=== PATIENT | female | born 1995 | race Caucasian/White ===

== ENCOUNTER 2016-10-28 19:22 | Emergency (ER) | payer OTHER ==
[~2016-10-28] VITALS: Ht 167.6 cm; Wt 127.3 kg
[~2016-10-28 19:22] MED LIST: FAMO40TA72 PO; ONDA-53 PO
[2016-10-28 19:28] VITALS: BP 136/88; PULSE 81; RESP 18; O2SAT 97
--- NOTE | 2016-10-28 20:00 | DRSVH ---
PROCEDURE: X-RAY LEFT HAND, MINIMUM THREE VIEWS ([id number]) INDICATIONS: left thumb pain TECHNIQUE: 3 views of the hand(s) acquired. COMPARISON: [facility], CR, XR WRIST 3VW LT, 10/28/2016, 19:38. FINDINGS: Bones: No fractures or dislocations. Carpal bones are normally aligned. No suspicious bony lesions . Old distal radial metaphyseal fracture is noted with internal fixation. Soft tissues: No suspicious soft tissue calcifications. IMPRESSION: No fracture or dislocation. Dictated by: Armond Fish M.D. on 10/28/2016 at 19:59 Approved by: Armond Fish M.D. on 10/28/2016 at 20:00
--- NOTE | 2016-10-28 20:02 | DRSVH ---
PROCEDURE: X-RAY LEFT WRIST COMPLETE, MINIMUM THREE VIEWS ([id number]) INDICATIONS: 21 year-old female with left wrist pain. TECHNIQUE: 4 views of the wrist were acquired. COMPARISON: None. FINDINGS: Bones: No acute fractures or dislocations. Old healed distal radial metaphyseal fracture with inter nal fixation. No suspicious bony lesions. Scaphoid view: Scaphoid is intact. Soft tissues: No suspicious soft tissue calcifications. IMPRESSION: No acute fracture. Old distal radial metaphyseal fracture with internal fixation. Dictated by: Armond Fish M.D. on 10/28/2016 at 20:00 Approved by: Armond Fish M.D. on 10/28/2016 at 20:02
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
[2016-10-28] MEDS ORDERED: _HYDROcodone/APAP 5-325 mg Tablet PO PRN (21:25)
[2016-10-28] MEDS ORDERED: Erythromycin 0.5% 1 Gm Ophthalmic Ointment RIGHT_EYE ONE (21:25)
[2016-10-28] MEDS ORDERED: IBUP-1827 PO (21:31)
[2016-10-28] MEDS ORDERED: Erythromycin 0.5% 1 Gm Ophthalmic Ointment RIGHT_EYE SCH (21:45)
[2016-10-28 22:00] VITALS: BP 136/88; PULSE 81; RESP 18; O2SAT 97
[2016-10-29] MEDS ORDERED: Erythromycin 0.5% 1 Gm Ophthalmic Ointment RIGHT_EYE SCH (08:30)
== END 2016-10-28 22:01 | disposition home or self-care (01) ==
LOC: SED 19:22
DX: S00.90XA Unspecified superficial injury of unspecified part of head, initial encounter (principal); S63.602A Unspecified sprain of left thumb, initial encounter; S40.011A Contusion of right shoulder, initial encounter; W18.30XA Fall on same level, unspecified, initial encounter; W22.8XXA Striking against or struck by other objects, initial encounter; Y92.003 Bedroom of unspecified non-institutional (private) residence as the place of occurrence of the external cause; Y93.89 Activity, other specified; Y99.8 Other external cause status; H00.012 Hordeolum externum right lower eyelid; Z87.828 Personal history of other (healed) physical injury and trauma

== ENCOUNTER 2016-12-19 13:53 | Emergency (ER) | payer OTHER ==
[~2016-12-19] VITALS: Ht 167.6 cm; Wt 136.4 kg
[~2016-12-19 13:53] MED LIST changes: +IBUP-1827 PO
[2016-12-19 13:56] VITALS: PULSE 77; RESP 17; O2SAT 96
--- NOTE | 2016-12-19 14:38 | DRSVH ---
PROCEDURE: X-RAY RIGHT FOOT COMPLETE, MINIMUM THREE VIEWS ([id number]) INDICATIONS: glass TECHNIQUE: 3 views of the foot were acquired. COMPARISON: None. FINDINGS: Bones: No fractures or dislocations. No suspicious bony lesions. Soft tissues: No radiopaque foreign bodies identified. IMPRESSION: 1. No radiopaque foreign bodies identified. Dictated by: Sajan Wray M.D. on 12/19/2016 at 14:31 Approved by: Sajan Wray M.D. on 12/19/2016 at 14:36
[2016-12-19 15:21] VITALS: BP 121/81; PULSE 75; RESP 16; O2SAT 96
--- NOTE | 2016-12-19 15:29 | ED.REPORT ---
HPI-Extremity Problem Lower Date of Service Dec 19, 2016 ED Provider: Dr. Cook Patient is a 21 y/o female with a history of chronic anemia who presents to the ED with a laceration to the right foot that occurred at 1430 when she stepped on a broken piece of glass while walking in her kitchen. She was able to control the bleeding with pressure but still reports a sharp pain. The patient stated that she had fallen with no associated trauma, numbness or tingling but does admit to feeling lightheaded and fatigued. Nursing Notes Stated Complaint: RIGHT FOOT INJURY Chief Complaint: Laceration Nursing Notes Reviewed: Yes Allergies: Coded Allergies: Latex, Natural Rubber (Verified Allergy, Severe, 12/19/16) Uncoded Allergies: ELASTIC (Allergy, Intermediate, 12/19/16) Scheduled Famotidine (Pepcid) 40 Mg Tablet 40 MG PO BID Ondansetron (Ondansetron) 4 Mg Tablet 4 MG PO QID Scheduled PRN Ibuprofen (Ibuprofen) 600 Mg Tablet 600 MG PO QID PRN PRN For Pain General Time Seen by MD: 15:29 Chief Complaint Foot injury right Hx Obtained From: Patient Arrived By: Walk-in Onset Occurred: 1 - 4 hours ago Symptom Duration: Since onset Caused by: Accidental Location: : Foot right Quality: Sharp Severity: Current: Moderate Past Medical History Past Medical History Chronic anemia Past Surgical History None reported Smoking History Unknown if Ever Smoker Social History Infrequent cocaine Alcohol Use: "Social" Drug Use: THC Ambulatory Status Independent Review of Systems Musculoskeletal: Reports: Extremity pain Complete sys rev & neg: except as marked. Hematologic: Reports Bleeding Physical Exam Initial Vital Signs Vital Signs (First) Date Time Temp Pulse Resp B/P Pulse Ox O2 Delivery O2 Flow Rate FiO2 12/19/16 13:56 36.3 77 17 96 Room Air 12/19/16 15:21 121/81 Initial VS: Reviewed General/Constitutional: Well-developed, Well-nourished Head / Eyes: Atraumatic, Normocephalic, PERRL ENT: Mucous membranes moist, Conjunctiva normal, No scleral icterus Neck: Supple, Non-tender, Full range of motion Respiratory: No respiratory distress Cardiovascular: Intact distal pulses Skin: Warm, Dry, No cyanosis Neurologic: Alert, Oriented, Nonfocal Psychiatric: Mood/affect normal, Behavior normal, Normal thought content Ankle / Foot: Neurologic intact, Vascular intact 3cm laceration to the plantar region of right foot. Full plantar flexion of toes and cap refill sensation intact. Interpretation & Diagnostics X-Ray Interpretation Xray Interpretation: IMPRESSION: 1. No radiopaque foreign bodies identified. Dictated by: Sajan Wray M.D. on 12/19/2016 at 14:31 X-Ray Ordered: Foot right Interpretation / Wet Read by: Interpret - Radiologist Procedures Laceration Management Time: 16:15 Procedure Performed by: ED physician Consent / Setup / Site Prep: Consent from patient Wound Length: 3 cm Local Anesthesia: Lidocaine w epi 1% Wound Preparation: Betadine Irrigation: Copious (saline) Repair Skin: ___ O (4), Nylon # Sutures - Skin: 6 Suture Technique: Simple Post-Procedure / Complications: Antibiotic oint applied, Dressing applied, No complications, Condition improved, Tolerated procedure well, Patient stable Re-Eval/Medical Decision Re-Evaluation/Progress : Time of Eval: 16:48 Patient Status: Condition improved (after sutures) Re-Evaluation/Progress Note: Discussed plan for d/c and f/u. All questions addressed. Counseled Regarding: Diagnosis, Need for follow-up, When/why to return to ED Discharge & Departure Impression: Primary Impression: Laceration of right foot Encounter type: initial encounter Qualified Code: S91.311A - Laceration without foreign body, right foot, initial encounter Disposition: Home Discharge Condition All VS Reviewed: Yes Condition: Stable Patient Instructions: Acute Wound Care (ED) Additional Instructions: W e sutured a laceration on your R foot. We gave a tetanus booster. return in 10 days to have stitches out. tetanus shot is good for 10 years. come back immediately if you have problems with the wound. Referrals: NOPCP (PCP) Scribe Attestation Portions of this note were transcribed by Marlene Kay. I, ( Dr. Cook) personally performed the history, physical exam and medical decision- making; I reviewed and confirmed the accuracy of the information in the transcribed note. Signed by: Marlene Kay. Scribe, 12/19/2016 , 0943 Toño Cook MD Dec 19, 2016 15:29 Samson Kay Dec 19, 2016 16:02 Marlene Benz Dec 19, 2016 16:50
[2016-12-19] MEDS ORDERED: TdaP Vaccine 0.5 mL Inj IM ONE (16:00)
[2016-12-19] MEDS ORDERED: Lidocaine 2%-Epi 1:100,000 20 mL Inj ONE (16:06)
[2016-12-19 17:07] VITALS: BP 121/81; PULSE 75; RESP 16; O2SAT 96
== END 2016-12-19 17:08 | disposition home or self-care (01) ==
LOC: SED 13:53
DX: S91.311A Laceration without foreign body, right foot, initial encounter (principal); W25.XXXA Contact with sharp glass, initial encounter; Y93.01 Activity, walking, marching and hiking; Y92.000 Kitchen of unspecified non-institutional (private) residence as the place of occurrence of the external cause; Y99.8 Other external cause status; Z91.040 Latex allergy status

== ENCOUNTER 2016-12-19 20:55 | Emergency (ER) | payer OTHER ==
[~2016-12-19] VITALS: Ht 167.6 cm; Wt 136.4 kg
[2016-12-19 21:55] VITALS: BP 133/94; PULSE 85; RESP 16; O2SAT 96
--- NOTE | 2016-12-20 00:23 | ED.REPORT ---
HPI-Extremity Problem Lower Date of Service Dec 20, 2016 ED Provider: Doc,Ed MD A 21 year old female presents to the ED complaining of laceration to right foot. Laceration was repaired earlier in ED, patient leaving at 1730. Pain and bleeding have been increasing since then. Nursing Notes Stated Complaint: CUT ON FOOT/ BLEED THROUGH BANDAGE, TOES IN PAIN Chief Complaint: Extremity Trauma Nursing Notes Reviewed: Yes Allergies: Coded Allergies: Latex, Natural Rubber (Verified Allergy, Severe, 12/19/16) Uncoded Allergies: ELASTIC (Allergy, Intermediate, 12/19/16) Scheduled Famotidine (Pepcid) 40 Mg Tablet 40 MG PO BID Ondansetron (Ondansetron) 4 Mg Tablet 4 MG PO QID Scheduled PRN Ibuprofen (Ibuprofen) 600 Mg Tablet 600 MG PO QID PRN PRN For Pain General Time Seen by MD: 00:23 Chief Complaint Foot injury right Hx Obtained From: Patient Arrived By: Walk-in Onset Occurred: 1 - 4 hours ago Symptom Duration: Since onset Severity: Current: Moderate Severity: Maximum: Moderate Recent Healthcare: Recent doctor visit (Visited ED earlier today.) Similar Sx Previous: No Past Medical History Past Medical History Chronic anemia Past Surgical History None reported Smoking History Current Some Day Smoker Social History Infrequent cocaine Alcohol Use: "Social" Drug Use: THC Ambulatory Status Independent Review of Systems Constitutional: Denies: Chills, Fever Musculoskeletal: Reports: Extremity pain (right foot laceration with pain and bleeding.) Complete sys rev & neg: except as marked. Respiratory: Denies: Non-productive cough Physical Exam Initial Vital Signs Vital Signs (First) Date Time Temp Pulse Resp B/P Pulse Ox O2 Delivery O2 Flow Rate FiO2 12/19/16 21:55 36.4 85 16 133/94 96 Room Air Initial VS: Reviewed Lower Extremity / Pelvis / MS: Full range of motion Right Foot: Positive: ROM reduced (Pain with ROM in toes) 1.5-2cm laceration to pad of right foot. Pain with ROM in toes. No signs of infection. Sensation of toes intact. General/Constitutional: Awake, Alert Respiratory / Chest: Atraumatic, Breath sounds NL, Breath sounds = bilat, No respiratory distress, No rales, No rhonchi, No wheezing Cardiovascular: Heart rate NL, Regular rhythm, Heart sounds NL, No gallop, No murmurs, No rubs Skin: Atraumatic, Color NL, Warm Neurologic: Oriented X3, Speech NL Head / Eyes: Atraumatic, Normocephalic, PERRL, EOMI ENT: Atraumatic, Airway patent, Mucous membranes moist Abdomen: No guarding, No rebound Upper Extremity / MS: No swelling, No edema Re-Eval/Medical Decision Med Decision/Clinical Course No signs of active bleeding. She does not pain with range of motion and some subjective tendon weakness. Wound is are not even close like cannot comment on whether the tendons were injured. I will have her follow-up with podiatry though Source of Hx: Old records Re-Evaluation/Progress : Time of Eval: 00:23 Re-Evaluation/Progress Note: Explained diagnosis, and plan for discharge. Patient understands and agrees with the plan. All questions addressed. Counseled Regarding: Diagnosis, Need for follow-up, When/why to return to ED Discharge & Departure Impression: Primary Impression: Laceration of right foot Encounter type: subsequent encounter Qualified Code: S91.311D - Laceration without foreign body, right foot, subsequent encounter Disposition: Home Patient Instructions: Crutch Instructions (ED), Laceration (ED), Splint Care ( ED) Additional Instructions: Keep the wound dressed and elevated. Wear the cam boot and use crutches for ambulation. Elevate your foot as much as possible. Due to fact that you are having the paresthesias and tendon weakness I recommended you follow up with a aluminum welder. Call the referral aluminum welder office tomorrow for evaluation. You may take 1-2 Percocet every 6 hours as needed for severe pain. This medication can be habit forming so use it sparingly. Do not drive or drink alcohol or consume acetaminophen while taking the Percocet. Return if any problems or any worsening symptoms. Referrals: NOPCP (PCP) Lorie Karimi DPM Attestation Portions of this note were transcribed by Ezekiel Holder. I, Dr. Lomeli personally performed the history, physical exam and medical decision-making; I reviewed and confirmed the accuracy of the information in the transcribed note. Signed by: Adali Fields, 12/20/2016, 0103. copies to: NOPCP; Lorie Karimi DPM, Todd P DO Dec 20, 2016 00:23 Ezekiel Holder Dec 20, 2016 00:59
[2016-12-20] MEDS ORDERED: _oxyCODONE/APAP 5-325 mg Tablet PO PRN (00:35)
== END 2016-12-20 01:15 | disposition home or self-care (01) ==
LOC: SED 20:55
DX: S91.311D Laceration without foreign body, right foot, subsequent encounter (principal); W45.8XXD Other foreign body or object entering through skin, subsequent encounter; Y93.89 Activity, other specified; Y92.89 Other specified places as the place of occurrence of the external cause; Y99.8 Other external cause status; F17.200 Nicotine dependence, unspecified, uncomplicated; Z91.040 Latex allergy status

== ENCOUNTER 2017-02-18 09:53 | Emergency (ER) | payer OTHER ==
[~2017-02-18] VITALS: Ht 167.6 cm; Wt 129.6 kg
[2017-02-18 09:55] VITALS: BP 149/97; PULSE 96; RESP 15; O2SAT 97
--- NOTE | 2017-02-18 10:05 | ED.REPORT ---
HPI-Chest Pain Under 40 Date of Service Feb 18, 2017 ED Provider: Travis Flaherty MD Pt is a 21 y/o female w/ a hx of unmedicated anxiety, suspected stomach ulcer, presenting to the ED with multiple vague medical complaints. Her complaints include RAUSCH onset this morning thought to be a migraine, nausea and bilious vomiting daily for 1.5 months with worsening bright red blood specked in emesis , intermittent chest tightness lasting 1-2 minutes at a time thought to be brought on by shivering for 3 weeks, cough for 2 days with speckled bright red blood in sputum, possible darkened stools which she is not concerned about, intermittent subjective fever for multiple days with last episode 04:00 this morning. She was thought to have a stomach ulcer last July caused by NSAID use due to presentation of coffee-ground emesis and tarry stools. She was told to switch to Tylenol and therefore has not been taking any NSAIDs recently. She reports heart disease in her mother with symptoms beginning in her 20s. She would also like to have a mostly healed wound on her right foot checked today. Nursing Notes Stated Complaint: HEADACHE,CP,SPITTING UP BLOOD Chief Complaint: Chest Pain-Non Cardiac Nature Nursing Notes Reviewed: Yes (N-Trig, meds not reconciled) Allergies: Coded Allergies: Latex, Natural Rubber (Verified Allergy, Severe, 12/19/16) Uncoded Allergies: ELASTIC (Allergy, Intermediate, 12/19/16) Scheduled Famotidine (Pepcid) 40 Mg Tablet 40 MG PO BID Omeprazole (Omeprazole) 20 Mg Capsule.dr 20 MG PO BID Ondansetron (Ondansetron) 4 Mg Tablet 4 MG PO QID Scheduled PRN Benzonatate (Tessalon Perle) 100 Mg Capsule 200 MG PO TID PRN PRN For Cough Ibuprofen (Ibuprofen) 600 Mg Tablet 600 MG PO QID PRN PRN For Pain Promethazine (Promethazine) 25 Mg Tablet 25 MG PO Q4H PRN PRN nausea OR migraine General Time Seen by MD: 10:04 Chief Complaint Other (vague) Hx Obtained From: Patient Arrived By: Walk-in Sudden in Onset?: No Onset Occurred: More than a week ago... (1 month) Symptom Duration: Intermittent Location: : Substernal Quality: Pressure Radiation: : Does not radiate Severity: Current: No pain currently Severity: Maximum: Moderate Risk Factors )( PE Risk Stratification Risk factors reviewed, No risk factors Past Medical History Past Medical History Chronic anemia Asthma "Chronic bronchitis" Unmedicated anxiety Stomach ulcer caused by excessive NSAID use Past Surgical History Left elbow Bilat carpal tunnel Smoking History Current Some Day Smoker Social History Infrequent cocaine Alcohol Use: "Social" Drug Use: THC Ambulatory Status Independent Review of Systems Constitutional: Reports: Chills, Fever Respiratory: Reports: Hemoptysis, Non-productive cough, Denies: Shortness of breath Cardiovascular: Reports: Chest pain, Denies: Dyspnea on exertion, Edema GI: Reports: Bloody/tarry stool, Hematemesis, Nausea, Vomiting Complete sys rev & neg: except as marked. Physical Exam Initial Vital Signs Vital Signs (First) Date Time Temp Pulse Resp B/P Pulse Ox O2 Delivery O2 Flow Rate FiO2 02/18/17 09:55 36.2 96 15 149/97 97 Room Air Initial VS: Reviewed, Vital signs normal Head / Eyes: Atraumatic, Normocephalic, PERRL ENT: Mucous membranes moist, Conjunctiva normal, No scleral icterus Neck: Supple, Full range of motion Abdomen / GI: Soft, Non-tender, No guarding, No rebound, No distention Skin: Warm, Dry, No cyanosis Neurologic: Alert, Oriented, Nonfocal General/Constitutional: Awake, Alert, No acute distress, Well appearing, Cooperative, Not toxic appearing Behavior: Positive: Anxious Appearance / Presentation: Positive: Obese Respiratory / Chest: Breath sounds NL, Breath sounds = bilat, No respiratory distress, No rales, No rhonchi, No wheezing, No retractions, No stridor, No chest tenderness Cardiovascular: Heart rate NL, Regular rhythm, Heart sounds NL, No gallop, No murmurs, No rubs, Cap refill not delayed, Peripheral circulation NL Lower Extremity / Pelvis / MS: Atraumatic, Inspection NL, Full range of motion , No swelling, Non-tender, No erythema, No deformity, Neurologic intact, Vascular intact, No compartment syndrome, No edema Well healed scar over right foot without signs of infection or complication Psychiatric: Not suicidal, Not homicidal, No hallucinations, Cognitive function NL Abnormal Mood/Affect: Positive: Anxious Interpretation & Diagnostics Lab Results Interpretation Result Diagram: 02/18/17 1030 02/18/17 1030 Test 02/18/17 10:30 02/18/17 10:35 White Blood Count 9.7th/mm3 (3.8-10.1) Red Blood Count 5.00mil/mm3 (3.90-5.20) Hemoglobin 13.9g/dL (12.0-15.6) Hematocrit 41.8% (35.0-46.0) Mean Corpuscular Volume 83.6fL (81-100) Mean Corpuscular Hemoglobin 27.8pg (27.0-35.0) Mean Corpuscular Hemoglobin Concent 33.3% (32.0-37.0) Red Cell Distribution Width 14.1% (12.3-15.4) Platelet Count 329bil/L (150-400) Neutrophils (%) (Auto) 68.2% (40-74) Lymphocytes (%) (Auto) 22.1% (14-46) Monocytes (%) (Auto) 7.0% (4-12) Eosinophils (%) (Auto) 2.2% (0-5) Basophils (%) (Auto) 0.2% (0-3) Sodium Level 140mEq/L (134-144) Potassium Level 4.8mEq/L (3.5-5.2) Chloride Level 102mEq/L (97-108) Carbon Dioxide Level 26mmol/L (18-29) Blood Urea Nitrogen 7mg/dL (6-20) Creatinine 0.53mg/dL (0.57-1.00) Estimat Glomerular Filtration Rate 211mL/min (>59) Glucose Level 113mg/dL (60-99) Calcium Level 9.2mg/dL (8.5-10.1) Total Bilirubin 0.4mg/dL (0.0-1.2) Aspartate Amino Transf (AST/SGOT) 17U/L (0-50) Alanine Aminotransferase (ALT/SGPT) 29U/L (0-32) Alkaline Phosphatase 66U/L (25-150) Troponin T < 0.010ug/L (0.0-0.011) Total Protein 6.7g/dL (6.4-8.4) Albumin 3.9g/dL (3.4-5.0) Lipase 18U/L (13-60) Human Chorionic Gonadotropin, Qual Negative (Negative) Hold Varela Top Tube Received (Received) Lab Results Interpretation: CBC normal no anemia CMP normal negative Troponin negative ECG Interpretation Time: 10:24 Interpreted by: ED physician Normal ECG Interpretation: Normal ECG w/ rate of... (87), Normal rate, Normal sinus rhythm, No acute ischemic changes, Normal QRS, Normal axis, Normal intervals, Adequate tracing X-Ray Chest Interpretation Chest Xray Interpretation: IMPRESSION: No acute cardiopulmonary disease. Dictated by: Dmitry Myrick M.D. on 02/18/2017 at 9:44 Approved by: Dmitry Myrick M.D. on 02/18/2017 at 9:48 View: AP & lat Interpretation / Wet Read by: Interpret - Radiologist Re-Eval/Medical Decision Med Decision/Clinical Course This is a 21-year-old female presents with a multitude of symptoms. At some very atypical chest tightness over the past several weeks, often lasts just a few minutes, she does have a history of asthma. Over the past week she has had more frequent bouts of chest discomfort, but is also developed a cough shortness of breath. She has had some intermittent fevers. She is developed nausea and vomiting, worse with coughing. After several days of vomiting, has had some blood in her vomitus. She reports a distant history of concern for possible gastritis, says avoiding NSAIDs using Tylenol. She also has a mild headache that she says is similar to her typical migraine. Lastly she had concern for recheck of wound in her foot and a completely healed so still has some soreness. On exam she has normal vitals. She is anxious, and she has a moderate cough. She does not really have audible bronchospasm she reports she took her nebulizers before coming in. She is not visibly tachypneic or dyspneic. She does have the uncomfortable cough. Abdomen soft nontender. And the foot wound is completely healed scar in the right foot, no signs of complication or abscess are evident. The patient is perk rule negative. She reports concern about her heart, but has no real risk factors. EKG, chest x-ray, troponin are negative. Blood work was also normal with no anemia, no leukocytosis. Patient's not describing a significant GI bleed, and is hemodynamically normal, and describes features highly suggestive of a small Enid-Gallegos tear given reported retching prior to the onset of the bleed. The plan is discharge to home, I provided a course of PPI, continue Tylenol, single dose of dexamethasone, Tessalon Perles for cough suppression, and sent. Promethazine for nausea and migraine suppression. She is discharged in stable condition. Routine precautions reviewed Source of Hx: Old records Re-Evaluation/Progress : Time of Eval: 11:48 Re-Evaluation/Progress Note: Pt rechecked. Discussed normal lab and imaging results. She is feeling better. Informed pt of plan for treatment. Pt understands and agrees with plan for treatment. F/U instructions and RTER warnings given. All questions addressed. Differential Diagnosis: Positive: Chest pain, Negative: Acute coronary syndrome, Acute myocardial infarct, Congestive heart failure, Dysrhythmia, Esophageal rupture, Gun shot wound chest, Myocardial infarction, Pneumomediastinum, Pneumonia, Pneumothorax, Pulmonary embolism, Stab wound chest, Unstable angina Counseled Regarding: Diagnosis, Lab results, Need for follow-up, When/why to return to ED Discharge & Departure Primary Impression: Enid-Gallegos syndrome Additional Impression: Respiratory infection Disposition: Home Discharge Condition All VS Reviewed: Yes Condition: Stable Additional Instructions: 1. Your Xray was normal - no findings of a pneumonia or other dangerous cause of chest pain. Your EKG and blood tests were also normal. This includes her blood counts, with no signs of anemia or significant bleeding. 2. Hypokalemia described after repeated vomiting, is typically from a small esophageal tear and is called a Enid-Gallegos syndrome. This is usually benign , and heels with time. 3. Take promethazine 25 mg up to every 4 hours as needed for nausea or migraine. 4. Omeprazole 20 mg twice a day for the next 4 weeks-this medicine helps protect the esophagus and stomach, and promote further healing. 5. You can continue Tylenol, and continue to avoid Aleve/ibuprofen/Advil. 6. Continue your asthma medications. We have also given your dose of dexamethasone here this medicine should also help with her breathing. Take the remaining dose of 10 mg tomorrow-simply emptied the syringe and this is diffuse and drink. Her x-ray and blood tests being normal, there are no findings that her respiratory infection is caused by bacteria that would benefit from antibiotics. Symptoms are expected to improve with more time. You can add tessalon perles up to 200mg three times a day as needed for cough. 7. Symptoms are not improving, if he had new or worsening symptoms-return to the emergency department for reevaluation. 8. Rest. Drink wall sips of fluids to stay hydrated, and advance diet as tolerated. 9. If he need a primary care physician, follow-up with Dr. Mendez. Referrals: Romel Mendez MD Attestation Portions of this note were transcribed by Steve Gross. I, Dr. Flaherty personally performed the history, physical exam and medical decision-making; I reviewed and confirmed the accuracy of the information in the transcribed note. Signed by Adali Carreno, 02/18/17 - [id number] copies to: Romel Mendez MD, Matthew F MD Feb 18, 2017 10:05 STEVE GROSS Feb 18, 2017 10:18
[2017-02-18] MEDS ORDERED: Promethazine 50 mg/mL Inj IM ONE (10:15)
[2017-02-18] MEDS ORDERED: Promethazine 25 mg/mL Inj IM ONE (10:35)
[2017-02-18 10:43] LABS: BASOPHILS % (AUTO) 0.2 % (0-3); EOSINOPHILS % (AUTO) 2.2 % (0-5); Mean Corpuscular Hemoglobin 27.8 pg (27.0-35.0); Mean Corpuscular Volume 83.6 fL (81-100); NEUTROPHILS % (AUTO) 68.2 % (40-74); Platelet Count 329 bil/L (150-400)
--- NOTE | 2017-02-18 10:49 | DRSVH ---
PROCEDURE: X-RAY CHEST, TWO VIEWS ([id number]) INDICATIONS: 21 year-old female with chest pain for 3 weeks, and hemoptysis. TECHNIQUE: 2 views of the chest were acquired. COMPARISON: [facility], CR, XR CHEST 2VW, 10/11/2016, 12:54. [facility], CR , CHEST 1VW, 02/05/2008, 22:19. FINDINGS: Surgical changes and devices: None. Lungs and pleura: No pleural effusions or pneumothorax. Lungs are clear. Mediastinum: Mediastinal contours are normal. Heart size is normal. Bones and chest wall: No suspicious bony abnormalities. Soft tissues appear unremarkable. IMPRESSION: No acute cardiopulmonary disease. Dictated by: Dmitry Myrick M.D. on 02/18/2017 at 9:44 Approved by: Dmitry Myrick M.D. on 02/18/2017 at 9:48
[2017-02-18 11:16] LABS: TROPONIN T < 0.010 ug/L (0.0-0.011)
[2017-02-18 11:18] LABS: Lipase 18 U/L (13-60)
[2017-02-18] MEDS ORDERED: Dexamethasone 20 mg/2 mL Oral Solution PO ONE (11:20)
[2017-02-18] MEDS ORDERED: Pantoprazole 40 mg ER24 Tablet PO ONE (11:20)
[2017-02-18] MEDS ORDERED: BENZ-12 PO (11:45)
[2017-02-18] MEDS ORDERED: OMEP20CA11 PO (11:45)
[2017-02-18] MEDS ORDERED: PROM25TA14 PO (11:45)
[2017-02-18 11:53] VITALS: BP 140/89; PULSE 90; RESP 16; O2SAT 97
== END 2017-02-18 11:54 | disposition home or self-care (01) ==
LOC: SED 09:53
DX: K22.6 Gastro-esophageal laceration-hemorrhage syndrome (principal); J98.8 Other specified respiratory disorders; F17.200 Nicotine dependence, unspecified, uncomplicated; Z91.040 Latex allergy status
CPT/HCPCS: 36415; 71020; 80053; 83690; 84484; 84703; 85025; 93005; 96372; 99285; J2550

== ENCOUNTER 2017-02-25 15:08 | Emergency (ER) | payer OTHER ==
[~2017-02-25] VITALS: Ht 167.6 cm; Wt 127.3 kg
[~2017-02-25 15:08] MED LIST changes: +BENZ-12 PO; +OMEP20CA11 PO; +PROM25TA14 PO
[2017-02-25 15:11] VITALS: BP 121/84; PULSE 106; RESP 16; O2SAT 97
[2017-02-25] MEDS ORDERED: 0.9% Sodium Chloride 1,000 ML IV ONE (16:27)
[2017-02-25] MEDS ORDERED: Ondansetron 2 mg/mL 2 mL Inj IVPUSH PRN (16:30)
--- NOTE | 2017-02-25 16:36 | ED.REPORT ---
HPI-Abd Pain F Under 40 Date of Service Feb 25, 2017 ED Provider: Cameron Barker MD The patient a 21 yo female with a hx of unmedicated anxiety, suspected stomach ulcer, and recent Enid-Gallegos syndrome presenting to the ED with multiple vague medical complaints. Her complaints include bilious vomiting daily for 1.5 months with worsening bright red blood specked in emesis, intermittent chest tightness lasting 1-2 minutes at a time thought to be brought on by shivering for 3 weeks, dark/loose stool every 15 minutes, cough for 2 days with copious amount of green sputum, intermittent subjective fever for multiple days. She presented to the ER for similar symptoms and was thought to have Enid-Gallegos tear last week. She admits that the Promethazine and Omeprazole helped her symptoms for a couple days, then everything returns 5 days ago. Other associated symptoms include generalized body ache, epigastric abdominal pain, back pain, and anxiety. Patient denies headache, SOB, dysuria, urinary frequency , or numbness/tingling. She can tolerate food with no issue. She also reports being diagnosed with stomach ulcer last July caused by NSAID use due to presentation of coffee-ground emesis and tarry stools. Patient states that her cousin, who had similar symptoms as her, was diagnosed with Shigella recently. She has an IUD in place and denies having menstrual period since she was 15 yo. Nursing Notes Stated Complaint: BLOODY STOOL AND THROAT Chief Complaint: Female Abdominal Pain Nursing Notes Reviewed: Yes Allergies: Coded Allergies: Latex, Natural Rubber (Verified Allergy, Severe, 02/25/17) Uncoded Allergies: ELASTIC (Allergy, Intermediate, 12/19/16) Scheduled Famotidine (Pepcid) 40 Mg Tablet 40 MG PO BID Fluconazole (Diflucan) 150 Mg Tablet 150 MG PO ONCE Omeprazole (Omeprazole) 20 Mg Capsule.dr 20 MG PO BID Ondansetron (Ondansetron) 4 Mg Tablet 4 MG PO QID Sulfamethoxazole/Trimeth 800-160 mg (Bactrim DS) 1 Each Tablet 1 TABLET PO BID Scheduled PRN Benzonatate (Tessalon Perle) 100 Mg Capsule 200 MG PO TID PRN PRN For Cough Ibuprofen (Ibuprofen) 600 Mg Tablet 600 MG PO QID PRN PRN For Pain Ondansetron ODT (Zofran ODT) 4 Mg Tablet 4 MG PO Q4H PRN PRN For Nausea Promethazine (Promethazine) 25 Mg Tablet 25 MG PO Q4H PRN PRN nausea OR migraine General Time Seen by MD: 16:03 Chief Complaint Nausea, Vomiting moderate Hx Obtained From: Patient Sudden in Onset?: No Onset Occurred: More than a week ago... (2 months) Symptom Duration: Intermittent Progression since Onset: Intermittent Location: : Epigastric Quality: Same as prior Radiation: : Does not radiate Severity: Current: Mild Severity: Maximum: Moderate Associated with: Reports: Back pain, Chills, Diarrhea, Fever, Hematemesis, Melena, Denies: Anorexia, Constipation, Dysuria, Hematuria, Shortness of breath, Urinary retention, Urinary tract symptoms Pertinent Negative: Pt denies other symptoms Recent Healthcare: Recent doctor visit, Recent hospitalization Similar Sx Previous: Yes Risk Factors Ectopic Risk Stratification Current IUD Risk factors reviewed CAD Risk Stratification No risk factors Past Medical History Past Medical History Chronic anemia Asthma "Chronic bronchitis" Unmedicated anxiety Stomach ulcer caused by excessive NSAID use Past Surgical History Left elbow Bilat carpal tunnel Family History Mother with GI bleeds due to alcoholism. Smoking History Current Some Day Smoker Social History Infrequent cocaine Alcohol Use: "Social" Drug Use: THC Ambulatory Status Independent Review of Systems Basic Review of Systems Eyes: Vision NL, No discharge Skin: No bruising, No rash, No itch Allergy / Immune: No allergy Neurologic: NL mental status, No weakness, No numbness Psychiatric: Normal thought content Constitutional: Reports: Chills, Fatigue, Fever Respiratory: Reports: Pleuritic pain, Prod cough, green, Denies: Dyspnea on exertion, Hemoptysis, Shortness of breath, Wheezing Cardiovascular: Reports: Chest pain, Denies: Edema, Syncope GI: Reports: Abdominal pain, Diarrhea, Hematemesis, Melena, Nausea, Vomiting, Denies: Anorexia, Constipation, Hematochezia Female: Denies: Dysuria, Incontinence, , Urinary frequency Musculoskeletal: Reports: Back pain, Myalgia Complete sys rev & neg: except as marked. Physical Exam Initial Vital Signs Vital Signs (First) Date Time Temp Pulse Resp B/P Pulse Ox O2 Delivery O2 Flow Rate FiO2 02/25/17 15:11 36.9 106 16 121/84 97 Room Air Initial VS: Reviewed, Vital signs normal (mild tachycardia) Head / Eyes: Atraumatic, Normocephalic, PERRL ENT: Mucous membranes moist, Conjunctiva normal, No scleral icterus Neck: Supple, Non-tender, Full range of motion Lymphatic: No lymphadenopathy Extremities: Vascular intact, Neuro intact, No swelling, No tenderness Skin: Warm, Dry, No cyanosis Neurologic: Alert, Oriented, Nonfocal General/Constitutional: Awake, Alert, No acute distress, Well appearing, Well developed, Well hydrated, Cooperative, Not toxic appearing Appearance / Presentation: Positive: Obese, morbidly Respiratory / Chest: Atraumatic, Breath sounds NL, Breath sounds = bilat, No respiratory distress, No rales, No rhonchi, No wheezing, No retractions Cardiovascular: Heart rate NL, Regular rhythm, Heart sounds NL, No murmurs Abdomen: Atraumatic, Soft, No guarding, No rebound, BS normoactive, No distention Tenderness/Guarding/Rebound: Positive: Tender epigastric, Tender suprapubic, Negative: Tender flank L, Tender flank R Back: Atraumatic, Inspection NL, Full range of motion, No paraspinal tenderness , No muscle spasm, No CVA tenderness Rectum / Perineum: Atraumatic, Blood - occult heme -, No gross blood, No discharge, No fecal impaction, No fissures, No hemorrhoids, No lesions, No mass , Sphincter tone NL Minimal amount of stool in the vault Neck: Atraumatic, Supple, No meningismus, Full range of motion, No adenopathy Abnormal Mood/Affect: Positive: Anxious, Elated, Labile Abnormal Thinking / Perception: Positive: Flight of ideas, Insight abnormal, Judgment abnormal, Tangential thinking, Negative: Confused, Hallucinations, auditory, Hallucinations, visual Interpretation & Diagnostics Lab Results Interpretation Result Diagram: 02/25/17 1703 02/25/17 1703 Test 02/25/17 17:03 02/25/17 17:20 White Blood Count 10.2th/mm3 (3.8-10.1) Red Blood Count 5.13mil/mm3 (3.90-5.20) Hemoglobin 14.1g/dL (12.0-15.6) Hematocrit 41.7% (35.0-46.0) Mean Corpuscular Volume 81.3fL (81-100) Mean Corpuscular Hemoglobin 27.5pg (27.0-35.0) Mean Corpuscular Hemoglobin Concent 33.8% (32.0-37.0) Red Cell Distribution Width 14.0% (12.3-15.4) Platelet Count 360bil/L (150-400) Neutrophils (%) (Auto) 65.8% (40-74) Lymphocytes (%) (Auto) 24.0% (14-46) Monocytes (%) (Auto) 8.0% (4-12) Eosinophils (%) (Auto) 1.5% (0-5) Basophils (%) (Auto) 0.2% (0-3) Sodium Level 137mEq/L (134-144) Potassium Level 4.4mEq/L (3.5-5.2) Chloride Level 102mEq/L (97-108) Carbon Dioxide Level 22mmol/L (18-29) Blood Urea Nitrogen 6mg/dL (6-20) Creatinine 0.42mg/dL (0.57-1.00) Estimat Glomerular Filtration Rate 276mL/min (>59) Glucose Level 120mg/dL (60-99) Calcium Level 9.1mg/dL (8.5-10.1) Magnesium Level 2.1mg/dL (1.6-2.6) Total Bilirubin 0.4mg/dL (0.0-1.2) Aspartate Amino Transf (AST/SGOT) 31U/L (0-50) Alanine Aminotransferase (ALT/SGPT) 44U/L (0-32) Alkaline Phosphatase 66U/L (25-150) Total Protein 7.3g/dL (6.4-8.4) Albumin 3.6g/dL (3.4-5.0) Lipase 19U/L (13-60) Hold [place] Top Tube Received (Received) Urine Color Yellow (YELLOW) Urine Appearance Hazy (CLEAR,HAZY) Urine pH 8.5 (5.0-8.0) Urine Specific [place] 1.020 (1.003-1.035) Urine Protein Negativemg/dL (NEG,TRACE) Urine Glucose (UA) Negativemg/dL (NEGATIVE) Urine Ketones Negativemg/dL (NEGATIVE) Urine Occult Blood Negative (NEGATIVE) Urine Nitrite Negative (NEGATIVE) Urine Bilirubin Negative (NEGATIVE) Urine Urobilinogen Normalmg/dL (NORMAL) Urine Leukocyte Esterase Large (NEGATIVE) Urine RBC 0-2/hpf (0-2) Urine WBC 6-10/hpf (0-5) Urine Epithelial Cells Moderate/hpf (NONE-MOD) Urine Crystals None seen (NONE SEEN) Urine Bacteria Moderate/hpf (NONE-FEW) Urine Hyaline Casts None/lpf (NONE) Urine Granular Casts None seen (NONE SEEN) Urine Waxy Casts None seen (NONE SEEN) Urine Red Blood Cell Casts None seen (NONE SEEN) Urine White Blood Cell Casts None seen (NONE SEEN) Urine Mucus None seen (None Seen) Urine Trichomonas None seen (NONE SEEN) Urine Yeast None (NONE SEEN) Urinalysis Comment None Urine Culture Reflexed Indicated Hold Urine Received (Received) Lab values outside NL range: no clinical significance. X-Ray Chest Interpretation Chest Xray Interpretation: IMPRESSION: No acute pulmonary process. Dictated by: Shanika Craft M.D. on 02/25/2017 at 17:23 Approved by: Shanika Craft M.D. on 02/25/2017 at 17:23 Interpretation / Wet Read by: Interpret - Radiologist Re-Eval/Medical Decision Med Decision/Clinical Course 21 yo female with a hx of unmedicated anxiety, suspected stomach ulcer, and recent Enid-Gallegos syndrome presenting to the ED with multiple vague medical complaints onset almost 2 months ago. Patient was in the ER last week for similar symptoms and was diagnosed with possible Enid-Gallegos tear. She reports some improvement on the Omeprazole and Promethazine, but her symptoms returned 2 days later. Based on her history, there are concerns of bacterial vs. viral gastroenteritis; other possible differential are gastritis, peptic ulcer, GERD, UTI, anxiety, or malingering. In the ED, patient appears well hydrated and not in any acute distress. Her abdominal exam is significant for mild tenderness to palpation in the epigastric and suprapubic area with no rebound or guarding. The rest of the exam is normal and the cough was observed to be mild and non-productive. Hemoccult is negative with no dark, tarry or bloody stool noted. Her CXR and labs were all within normal limit, except for a positive UA. Therefore, patient was diagnosed with UTI and was given 7 days of Bactrim. She expressed concerns of yeast infection while on antibiotics so a prescription for Fluconazole 150mg x once was given and only filled as needed. Because patient did not complain of significant CP or SOB and she has no risk factors for PE or ACS, no cardiac workup was indicated. She will need to establish care of a primary care doctor and return to the ER for severe symptoms. Patient concurs with the plan. Re-Evaluation/Progress : Time of Eval: 17:40 )( Re-Eval Abdomen: Soft Patient Status: Condition improved Re-Evaluation/Progress Note: Patient reports improvement of her nausea and requests to be discharged. Urine dip showed some leukocytes, which indicated possible UTI. Will discharge the patient with Bactrim and follow up as outpatient. Patient verbalized understanding and would like a work excuse for today. Differential Diagnosis: Positive: Acute abdominal pain, Cholangitis, Cholecystitis, Cholelithiasis, Diarrhea, Dysmenorrhea, Ectopic , Endometriosis, Esophagitis, Infectious mononucleosis, Pelvic inflam disease, Peptic ulcer disease, Pyelonephritis, Sexually transmit disease, Urinary tract infection Severity: Non life-threatening Diagnosis Appears: Non-critical Comorbidities: Psychiatric history Counseled Regarding: Diagnosis, Lab results, Need for follow-up, When/why to return to ED Discharge & Departure Shift Change Sign-Out Response to Therapy: Improved Primary Impression: Acute UTI (urinary tract infection) Additional Impression: Nausea & vomiting Vomiting type: bilious vomiting Qualified Code: R11.14 - Bilious vomiting Disposition: Home Discharge Condition All VS Reviewed: Yes Condition: Stable Patient Instructions: Acute Nausea and Vomiting (ED), Acute Abdominal Pain (ED) Additional Instructions: You was seen in the ER for evaluation of dark, loose stool and bloody vomiting. The exact cause of your symptoms are uncertain. There is no blood noted on the hemoccult today, so the dark stool could be due to your food. Please set up an appointment with a primary care doctor. You can go to the Residency clinic here if you need a doctor. Your labs are within normal limit, except that urine shows possible infection. We will treat it with an antibiotic called Bactrim. Please take it as directed for 7 days. Prescription was sent to your pharmacy. You can take probiotics or eat yoghurt while taking the antibiotics to prevent worsening diarrhea. I will give you a prescription for an antifungal medication that you can fill if you develop yeast infection with the antibiotics. Your stool and urine were sent for further analysis today. It is likely that you have a viral infection that usually self-resolved. Please make sure to keep yourself hydrated with plenty of fluid. If you go to the Residency Clinic, they will have assess to the lab results. You can take either the Promethazine or the Zofran as needed for the nausea. Continue to take the Omeprazole as directed. Avoid spicy, fatty food and reduce your caffein/soda/energy drink intake. Go to the ER if your symptoms worsen or if you develop large amount of bloody stool or vomiting, high fever, severe headache, or worsening back pain. Referrals: [facility] EDSupervising Provider for APC: Cameron Barker MD Attending Statment Discussed patient with resident and evaluate the patient independently greater plan as above. In brief 21-year-old female with chronic abdominal pain times several months and vomiting presenting with similar complaints. Also reports some blood in her vomit which is also been chronic. Recently diagnosed with possible mild Enid-Gallegos tear. Today her guaiac is negative. She had no episodes of vomiting while she was here. Her abdomen is completely soft and nontender. Labs are stable. Urine suggests UTI. Patient be treated for UTI. She will follow up with primary doctor and GI. Return precautions given if any new or worsening abdominal pain, nausea vomiting, blood in stools or vomit, fevers, back pain, any other new or worsening symptoms. copies to: [facility] Cameron Barker MD Feb 25, 2017 16:36 Brayden Mcmillan DO Feb 25, 2017 17:57
[2017-02-25 17:16] LABS: BASOPHILS % (AUTO) 0.2 % (0-3); EOSINOPHILS % (AUTO) 1.5 % (0-5); Mean Corpuscular Hemoglobin 27.5 pg (27.0-35.0); Mean Corpuscular Volume 81.3 fL (81-100); NEUTROPHILS % (AUTO) 65.8 % (40-74); Platelet Count 360 bil/L (150-400)
--- NOTE | 2017-02-25 17:25 | DRSVH ---
PROCEDURE: X-RAY CHEST, TWO VIEWS ([id number]) INDICATIONS: Productive cough TECHNIQUE: 2 views of the chest were acquired. COMPARISON: [facility], CR, XR CHEST 2VW, 02/18/2017, 10:23. FINDINGS: Surgical changes and devices: None. Lungs and pleura: No pleural effusions or pneumothorax. Lungs are clear. Mediastinum: Mediastinal contours are normal. Heart size is normal. Bones and chest wall: No suspicious bony abnormalities. Soft tissues appear unremarkable. IMPRESSION: No acute pulmonary process. Dictated by: Shanika Craft M.D. on 02/25/2017 at 17:23 Approved by: Shanika Craft M.D. on 02/25/2017 at 17:23
[2017-02-25 17:35] LABS: Magnesium 2.1 mg/dL (1.6-2.6)
[2017-02-25 17:53] LABS: APPEARANCE,URINE HAZY (CLEAR,HAZY); COLOR,URINE YELLOW (YELLOW); OCCULT BLOOD,URINE NEGATIVE (NEGATIVE); PH,URINE 8.5 (5.0-8.0); UROBILINOGEN,URINE NORMAL (NORMAL)
[2017-02-25] MEDS ORDERED: ONDA4TAB9 PO (18:06)
[2017-02-25] MEDS ORDERED: SULF1TAB7 PO (18:06)
[2017-02-25] MEDS ORDERED: FLUC150T48 PO (18:07)
[2017-02-25 18:37] VITALS: BP 127/49; PULSE 80; RESP 18; O2SAT 99
== END 2017-02-25 18:39 | disposition home or self-care (01) ==
LOC: SED 15:08
DX: N39.0 Urinary tract infection, site not specified (principal); R11.14 Bilious vomiting; K22.6 Gastro-esophageal laceration-hemorrhage syndrome; F17.200 Nicotine dependence, unspecified, uncomplicated; Z87.19 Personal history of other diseases of the digestive system; Z91.040 Latex allergy status
CPT/HCPCS: 36415; 71020; 80053; 81000; 81025; 83690; 83735; 85025; 87086; 87088; 87507; 96361; 96374; 96375; 99285; J2270; J2405; J7030